=== PATIENT | male | born 1980 | race Caucasian/White ===

== ENCOUNTER 2016-09-30 15:22 | Emergency (ER) | payer MEDICAID ==
[~2016-09-30] VITALS: Ht 175.3 cm; Wt 86.6 kg
[~2016-09-30 15:22] MED LIST: CHLORDIAZEPOXID25 MG PO; VISTARIL50 MG PO
[2016-09-30] MEDS ORDERED: CITALOPRAM HBR10 MG PO (15:27)
[2016-09-30] MEDS ORDERED: LISINOPRIL10 MG PO (15:27)
== END 2016-09-30 15:32 | disposition home or self-care (01) ==
LOC: ED 15:22
DX: Z00.8 Encounter for other general examination (principal)

== ENCOUNTER 2016-11-04 14:49 | Emergency (ER) | payer MEDICAID ==
[~2016-11-04] VITALS: Ht 175.3 cm; Wt 82.5 kg
[~2016-11-04 14:49] MED LIST changes: +CITALOPRAM HBR10 MG PO; +LISINOPRIL10 MG PO
[2016-11-04] MEDS ORDERED: VITAMIN B-1100 MG PO (15:00)
== END 2016-11-04 15:06 | disposition home or self-care (01) ==
LOC: ED 14:49
DX: Z00.8 Encounter for other general examination (principal)